=== PATIENT | female | born 1970 | race Caucasian/White ===

== ENCOUNTER → 2023-10-07 15:55 | Outpatient (BNVA) | payer SELFPAY | PROVIDERS: PCP Internal Medicine ==

== ENCOUNTER 2023-11-29 09:13 | Inpatient (IN) | payer OTHER, SELFPAY ==
[2023-11-29] VITALS (8 sets, daily range): BP systolic 101–154; BP diastolic 48–101; PULSE 81–106; RESP 16–20; TEMP 36.7–37.6; O2SAT 82–93; BMI 52.8
--- NOTE | ~2023-11-29 | XR_ITS ---
EXAMINATION: XR CHEST CLINICAL INFORMATION: Shortness of breath. COMPARISON: None available. TECHNIQUE: Frontal view of the chest was obtained. FINDINGS: Perihilar bronchial wall thickening. No consolidation, pneumothorax, or pleural effusion. Linear opacities at the right lung base likely correspond to atelectasis. No pleural effusion. Cardiac and mediastinal contours are normal. No acute osseous findings. XR/XR chest 1V IMPRESSION: Bronchial wall thickening can be seen with a small airways process such as asthma or atypical/viral infection.
--- NOTE | 2023-11-29 10:20 | ED_ITS ---
HPI - General Adult General Chief complaint: General Medical Stated complaint: chills body aches fever Time Seen by Provider: 11/29/23 10:04 Source: patient Mode of arrival: ambulatory Limitations: no limitations History of Present Illness ED Provider: Chace Cowart PA-C HPI narrative: This is a 53 year old female hx htn, dm, obesity with a chief complaint of chills, body aches, headache, N/D, some diarrhea, sore throat, shortness of breath and fever starting . SOB worse w/ movment better at rest. No sick contacts reported. No recent travel. Symptoms have not improved. Denies chest pain,vomiting, hematochezia, vision changes, weakness. Onset (ago): day(s) Related Data Allergies Allergy/AdvReac Type Severity Reaction Status Date / Time No Known Allergies Allergy Verified 11/29/23 09:47 Review of Systems 2 Review of Systems: Yes all other systems are reviewed and are negative Constitutional: Constitutional: Reports body ache(s), Reports chills, Reports fever(s) and Reports headache(s) ENT: Reports headache(s) Gastrointestinal: Gastrointestinal: Reports diarrhea, Reports nausea and Reports vomiting Neurologic: Reports headache(s) [facility] Past Medical History Attestation statement: The following information was validated with the patient. Source: old records reviewed and nursing notes reviewed Social History Social History Advance Directives: No Advance Directives Information Provided: Yes Physical Exam ED Vital Signs: Vital Signs - 24 hr 11/29/23 09:44 11/29/23 11:10 11/29/23 11:22 Temperature 99.6 F 98.7 F Pulse Rate 106 H 93 Respiratory Rate 20 20 Blood Pressure 154/101 H 126/84 Pulse Oximetry 93 92 82 L Oxygen Delivery Method Room Air Room Air Room Air BMI result Body Mass Index 52.8 VSS. Appearance: Alert.? Oriented X3.? No acute distress.? Head: Normocephalic, atraumatic, no step-offs or deformities Eyes: Pupils equal, round and reactive to light.? ENT: Pharynx normal.??Uvula midline. Speaking in full sentences. Mild erythema. No exudates or abcess. External ears normal, TMs normal bilaterally and EAC's normal. No pain with manipulation of external ears bilaterally. No mastoid tenderness. Neck: Normal inspection.? Neck supple.? CVS: Normal heart rate and rhythm.? Pulses normal.? Respiratory: No respiratory distress.? Breath sounds normal.? Abdomen: Soft and nontender.? Skin: Skin warm and dry.? Normal skin color.? Normal skin turgor.? Extremities: No lower extremity edema.? No calf ttp. 5/5 strength to bilateral upper and lower extremities Back: No midline tenderness, no C-spine tenderness, full range of motion, no CVA tenderness bilaterally Neuro: Oriented X 3.? No motor deficit.? No sensory deficit. CN 2-12 intact Course Reevaluation(s) Reevaluation #1: Patients ambulatory O2, 82% w/ labored breathing w/ ambulation. Flu/covid/ rsv and strep negative. At this time will obtain labs, ua, blood cultures and lactic acid. Fluids hanging Time: 11:27 Reevaluation #2: X-ray with bronchial wall thickening can be seen with small airway process such as asthma or atypical/viral infection I do suspect an atypical infection as patient has had a fever symptoms have been ongoing for greater than 7 days and she is desatting down to 82% on room air. Plan hospital admission Time: 12:51 Medications Administered Discontinued Medications Generic Name Dose Route Start Last Admin Trade Name Freq PRN Reason Stop Dose Admin Sodium Chloride 1,000 mls @ 999 mls/hr 11/29/23 11:00 11/29/23 12:44 Ns IV 11/29/23 12:00 Infused .Q1H1M [facility] Infusion Sodium Chloride 3,804 mls @ 3,804 mls/hr 11/29/23 11:16 11/29/23 12:41 Ns 30 ml/kg infuse over 1 hr (3804 ml) 11/29/23 12:15 3,804 mls/hr IV Administration .Q1H STA Ceftriaxone Sodium 1 gm/ 50 mls @ 100 mls/hr 11/29/23 11:16 11/29/23 12:44 Sodium Chloride IV 11/29/23 11:45 Infused ONCE ONE Infusion Ketorolac Tromethamine 30 mg 11/29/23 11:14 11/29/23 11:35 Ketorolac Tromethamine 15 Mg/Ml Vial IVPUSH 11/29/23 11:15 30 mg ONCE ONE Administration Ondansetron HCl 4 mg 11/29/23 11:14 11/29/23 11:36 Ondansetron Hcl 4 Mg/2 Ml Vial IVPUSH 11/29/23 11:15 4 mg ONCE ONE Administration Medical Decision Making Medical Decision Making [facility] Narrative: 53 year old female with fever, sore throat, chills, body aches, N/V/D since last . PE: Pharynx normal.??Uvula midline. Speaking in full sentences. Mild erythema. No exudates or abscess. Differential includes flu vs COVID vs strep throat vs viral pharyngitis. Unlikely meningitis, encephalitis, retro tonsillar abscess. Plan: IV fluids 0.9% Sodium Chloride NS 999mls/hr. SARS-CoV2/Flu/RSV test results pending. Differential Diagnosis Differential Diagnoses: The differential diagnosis associated with the presentation includes (Flu vs COVID vs strep throat vs viral pharyngitis. Unlikely sinusitis, meningitis, encephalitis, retro tonsillar abscess. ) Admission/Observation Consideration of admission/observation: Escalation of care including admission/observation considered possible Lab Data [facility] Lab Attestation statement: I reviewed the patient's lab results. 11/29/23 11:55 11/29/23 11:55 Labs: Lab Results 11/29/23 11/29/23 11/29/23 Range/Units 10:15 11:53 11:55 WBC 5.7 (4.8-10.8) X10*3/uL RBC 4.42 (4.20-5.50) X10*6/uL Hgb 14.6 (12.0-16.0) g/dl Hct 42.4 (37.0-47.0) % MCV 95.9 (80.0-98.0) fL MCH 33.0 (27.0-33.0) pg MCHC 34.4 (31.0-35.0) g/dl RDW 12.6 (11.0-16.0) % Plt Count 218 (160-400) X10*3/uL MPV 9.8 (9.4-12.3) fL Immature Gran % (Auto) 0.2 (0.0-0.4) % Neut % (Auto) 78.0 H (45-73) % Lymph % (Auto) 12.0 L (20-40) % [place] % (Auto) 9.0 (2-11) % Eos % (Auto) 0.4 (0-4) % Baso % (Auto) 0.4 (0-2) % Lymph # (Auto) 0.7 L (1.2-4.9) X10*3/uL [place] # (Auto) 0.5 (0.1-1.2) X10*3/uL Eos # (Auto) 0.0 (0.0-0.4) X10*3/uL Baso # (Auto) 0.0 (0.0-0.2) X10*3/uL Abs Immat Gran (auto) 0.01 (0.00-0.03) X10*3/uL Absolute Neuts (auto) 4.5 (2.0-8.3) x10*3/uL Absolute Nucleated RBC 0.000 (0.0-0.012) X10*3/uL Nucleated RBC % (auto) 0.0 (0.0-0.2) /100WBC PT 11.9 (11.1-13.3) SEC INR 1.0 (0.9-1.1) Sodium 137 (135-145) mmol/L Potassium 3.7 (3.3-5.1) mmol/L Chloride 102 (96-108) mmol/L Carbon Dioxide 24 (22-29) mmol/L Anion Gap 15 (12-20) BUN 11 (9-16) mg/dL Creatinine 0.87 (0.5-1.4) mg/dL Estim Creat Clear Calc 91.5 Estimated GFR > 60 Random Glucose 156 H (60-115) mg/dL Lactic Acid 1.0 (0.5-2.0) mmol/L Calcium 8.6 (8.4-10.2) mg/dL Total Bilirubin 0.5 (0.0-1.0) mg/dL AST 18 (5-31) U/L ALT 16 (0-31) U/L Alkaline Phosphatase 58 (39-117) U/L Total Protein 7.2 (6.5-8.0) g/dL Albumin 3.9 (3.5-5.0) g/dL Lipase 18 (8-78) U/L Urine Color Yellow Urine Appearance Clear Urine pH 6.0 (5.0-9.0) Ur Specific [place] 1.020 (1.005-1.025) Urine Protein Negative (Neg-Trace) mg/dL Urine Glucose (UA) Negative (Negative) mg/dL Urine Ketones 40 (Negative) mg/dL Urine Blood Negative (Negative) Urine Nitrite Negative (Negative) Ur Leukocyte Esterase Negative (Negative) Influenza Type A (PCR) NEGATIVE (Negative) Influenza Type B (PCR) NEGATIVE (Negative) RSV RNA Qual (PCR) NEGATIVE (Negative) SARS-CoV-2 RNA (RT-PCR) NEGATIVE (Negative) S. pyogenes GrpA FANNY Negative (Negative) Independent Interpretation I performed an independent interpretation of an: Plain X-Ray (XR/XR chest 1V IMPRESSION: Bronchial wall thickening can be seen with a small airways process such as asthma or atypical/viral infection. ) Radiology Impression Discussion of test interpretation with radiology: I have reviewed the radiologist's reading. Chronic Conditions Patient?s care impacted by: Diabetes, Hypertension and Other Critical Care Time Critical Care Time Critical Care Time: Yes Total Critical Care Time: 45 Attestation: I attest to this time spent taking care of the patient, obtaining history, physical, reviewing labs, imaging, speaking to my attending, specialist or hospitalist. Discharge Plan Discharge Clinical Impression: Acute bronchitis, Hypoxia Patient Disposition: Admitted As Inpatient Print Language: [place]
[2023-11-29 10:57] LABS: IDNOW Serial# 08D9AD1C; Strep A Nucleic Acid Negative (Negative)
[2023-11-29 11:11] LABS: Influenza A PCR NEGATIVE (Negative); Influenza B PCR NEGATIVE (Negative); Resp Syncy Virus RNA Qual PCR NEGATIVE (Negative); SARS COV2 PCR INHOUSE NEGATIVE (Negative)
[2023-11-29] MEDS: Ketorolac Tromethamine 15 MG/ML VIAL 30 MG IVPUSH (11:35)
[2023-11-29] MEDS: cefTRIAXone sodium 1 GM in 0.9 % Sodium Chloride 50 ML IV (11:36)
[2023-11-29] MEDS: ondansetron HCL 4 MG/2 ML VIAL IVPUSH (11:36)
[2023-11-29] MEDS: 0.9 % Sodium Chloride 1,000 ML 999 ML IV (11:36)
[2023-11-29 12:02] LABS: MANUAL DIFF FLAG NO
[2023-11-29 12:04] LABS: Basophils Percent Auto 0.4 % (0-2); Eosinophils Percent Auto 0.4 % (0-4); Hematocrit 42.4 % (37.0-47.0); Hemoglobin 14.6 g/dl (12.0-16.0); Imm Gran Abs Auto 0.01 X10*3/uL (0.00-0.03); Imm Gran Pct Auto 0.2 % (0.0-0.4); Lymphocytes Absolute Auto 0.7 X10*3/uL (1.2-4.9); Mean Corpuscular HGB Conc 34.4 g/dl (31.0-35.0); Mean Corpuscular Volume 95.9 fL (80.0-98.0); Mean Platelet Volume 9.8 fL (9.4-12.3); Monocytes Absolute Auto 0.5 X10*3/uL (0.1-1.2); Neutrophils Absolute Auto 4.5 x10*3/uL (2.0-8.3); Platelet Count 218 X10*3/uL (160-400); Red Blood Count 4.42 X10*6/uL (4.20-5.50); Red Cell Distribution Width 12.6 % (11.0-16.0); White Blood Count 5.7 X10*3/uL (4.8-10.8)
[2023-11-29 12:08] LABS: Prothrombin Time 11.9 SEC (11.1-13.3)
[2023-11-29 12:10] LABS: Appearance Urine Clear; Color Urine Yellow; Glucose Urine UA Negative (Negative); Leukocyte Esterase Urine Negative (Negative); Nitrite Urine Negative (Negative); Urine Blood Negative (Negative); Urine Ketones 40 mg/dL (Negative); Urine Protein Negative (Neg-Trace)
[2023-11-29 12:19] LABS: Lipase 18 U/L (8-78)
[2023-11-29 12:22] LABS: Alanine Aminotransferase 16 U/L (0-31); Albumin Level 3.9 g/dL (3.5-5.0); Alkaline Phosphatase 58 U/L (39-117); Anion Gap 15 (12-20); Aspartate Amino Transferase 18 U/L (5-31); Bilirubin Total 0.5 mg/dL (0.0-1.0); Blood Urea Nitrogen 11 mg/dL (9-16); Calcium 8.6 mg/dL (8.4-10.2); Carbon Dioxide 24 mmol/L (22-29); Chloride 102 mmol/L (96-108); Creatinine Clr Calc Pharmacy 91.5; Estimated Glomerular Filt Rate > 60; Glucose Random 156 mg/dL (60-115); Potassium 3.7 mmol/L (3.3-5.1); Sodium 137 mmol/L (135-145); Total Protein 7.2 g/dL (6.5-8.0)
--- NOTE | 2023-11-29 12:46 | ECG_ITS ---
Test Reason : SOB Blood Pressure : / mmHG Vent. Rate : 086 BPM Atrial Rate : 086 BPM P-R Int : 136 ms QRS Dur : 066 ms QT Int : 390 ms P-R-T Axes : 046 014 039 degrees QTc Int : 466 ms Normal sinus rhythm Normal ECG No previous ECGs available Referred By: Chace Cowart Electronically Signed By:José Manuel Rico
[2023-11-29] MEDS: Albuterol Sulfate 2.5 MG/0.5 ML VIAL.NEB 5 MG INHALE (12:56)
[2023-11-29 13:12] LABS: D Dimer High Sensitivity 281 NG/ML
[2023-11-29] MEDS: Azithromycin 500 MG in 0.9 % Sodium Chloride 250 ML 125 MG IV (13:15)
[2023-11-29 13:26] LABS: Troponin-I High Sensitivity < 2.7 ng/L (<3.5-17.0)
[2023-11-29 14:04] LABS: Adenovirus PCR Not Detected (Not Detect.); Bordetella parapertussis PCR Not Detected (Not Detect.); Bordetella pertussis PCR Not Detected (Not Detect.); Chlamydia pneumoniae PCR Not Detected (Not Detect.); Coronavirus 229E PCR Not Detected (Not Detect.); Coronavirus HKU1 PCR Not Detected (Not Detect.); Coronavirus NL63 PCR Not Detected (Not Detect.); Coronavirus OC43 PCR Not Detected (Not Detect.); Human metapneumovirus PCR Detected (Not Detect.); Influenza A PCR Not Detected (Not Detect.); Influenza B PCR Not Detected (Not Detect.); Mycoplasma pneumoniae PCR Not Detected (Not Detect.); Parainfluenza 1 PCR Not Detected (Not Detect.); Parainfluenza 2 PCR Not Detected (Not Detect.); Parainfluenza 3 PCR Not Detected (Not Detect.); Parainfluenza 4 PCR Not Detected (Not Detect.); RSV PCR Not Detected (Not Detect.); Rhino/Enterovirus PCR Not Detected (Not Detect.)
[2023-11-29 14:05] LABS: SARS-CoV-2 PCR Not Detected (Not Detect.)
--- NOTE | 2023-11-29 14:21 | PHA.MEDREC ---
Pharmacy Consult ? Medication Reconciliation Pharmacy has completed the medication reconciliation.
--- NOTE | 2023-11-29 15:01 | P.HPHOSP_ITS ---
History of Present Illness Date of Service: 11/29/23 Attending physician on admission: Abdirahman Watt Chief Complaint: uri symptoms 53-year-old female with history of lre-[id number] type 2 diabetes, hypertension, hyperlipidemia, mood disorder who is morbidly obese with BMI greater than 52 presented to the ED earlier today for evaluation of flu-like symptoms that has been ongoing for 5 days. She denies any known sick contacts but has been reporting myalgias, headaches, nausea without vomiting, chills, nonproductive cough, and intermittent light-headedness primarily with ambulation. Denies any fevers, sore throat, congestion, abdominal pain, diarrhea, shortness of breath, chest pain. She is known history of asthma or COPD. She has no smoking history. No illicit drug use or alcohol use. On arrival, was tachycardic to 106 with ambulatory hypoxemia to 82% on room air. On room air has been maintaining oximetry 91-93%. There is no leukocytosis. Renal function and electrolyte levels are normal. Hepatic function normal. Troponin undetectable. Urinalysis unremarkable. Respiratory viral panel was positive for human metapneumovirus. CXR negative for any focal consolidation but shows bronchial wall thickening suggestive of small airways disease. In the ED, has received IV NS, ketorolac, 1 g Rocephin, azithromycin, albuterol nebulizer. She will be admitted for further management of viral syndrome/bronchitis with ambulatory hypoxemia. Review of Systems 2 Review of Systems: General: No fevers, malaise, unintentional weight loss HEENT: No blurred vision, diplopia. No sore throat, nasal congestion, rhinorrhea, sinus pain, ear pain Cardiovascular: No chest pain, palpitations, or leg edema Respiratory: +cough, +wheezing. No shortness of breath GI: +nausea. No abdominal pain, vomiting, diarrhea, constipation, melena, hematochezia : No dysuria, hematuria, increased urinary frequency, decreased urinary output MSK: +myalgia. No back pain Neuro: No headaches, weakness, paresthesias Skin: No rashes or lesions [facility] Medical History (Updated 11/30/23 @ 09:42 by Abdirahman Watt MD) Diabetes HLD (hyperlipidemia) HTN (hypertension) Social History (Reviewed 11/29/23 @ 12:45 by SALLY Matias Alcohol intake: never Smoked in Last 30 Days: No Use of substances other than those prescribed or required for medical reasons: No Advance Directives: No Advance Directives Information Provided: Yes Do you have a plan to hurt others: No Plan Meds Allergies Allergy/AdvReac Type Severity Reaction Status Date / Time No Known Allergies Allergy Verified 11/29/23 09:47 Active Medications: Current Medications Acetaminophen (Acetaminophen 325 Mg Tablet) 650 mg PO Q6H PRN PRN Reason: Pain, Mild (Pain Scale 1-3) Albuterol/Ipratropium (Albuterol/Iprat 2.5/0.5mg 3 Ml Ampul.Neb) 3 ml INHALE RQ4H WHILE AWAKE [facility] Enoxaparin Sodium (Enoxaparin Sodium 40 Mg/0.4 Ml Syringe) 40 mg SUBCUT Q24H [facility] Escitalopram Oxalate (Escitalopram Oxalate 10 Mg Tablet) 10 mg PO DAILY [facility] Glucose (Glucose Gel 15 Gm Gel..Gram.) 15 gm PO Q15M PRN; Protocol PRN Reason: per Hypoglycemia Standing Ord. Dextrose (D10) 250 mls @ 750 mls/hr IV Q15M PRN; Protocol PRN Reason: per Hypoglycemia Standing Ord. Insulin Human Lispro (Insulin Lispro 100 Unit/Ml 3 Ml Vial) 0 unit SUBCUT QIDACHS [facility]; Protocol Magnesium Hydroxide (Milk Of Magnesia 30 Ml Oral.Susp) 30 ml PO DAILY PRN PRN Reason: Constipation Methylprednisolone Sodium Succinate (Methylprednisolone Sod Succ 40 Mg/Ml Vial) 40 mg IVPUSH Q12H [facility] Non-Formulary Medication (Lisinopril-Hydrochlorothiazide) 1 tab PO DAILY [facility] Ondansetron HCl (Ondansetron Hcl 4 Mg/2 Ml Vial) 4 mg IVPUSH Q8H PRN PRN Reason: Nausea and Vomiting Pravastatin Sodium (Pravastatin Sodium 20 Mg Tablet) 20 mg PO DAILY [facility] Sodium Chloride (0.9 % Sodium Chloride Flush 3 Ml Syringe) 3 ml IVFLUSH QSHIFT [facility] Home Medications ?Medication ?Instructions ?Recorded ?Confirmed ?Last Taken ?Type escitalopram oxalate 10 mg tablet 10 mg PO DAILY 11/29/23 11/29/23 Unknown History ibuprofen 200 mg tablet 200 - 400 mg PO DAILY PRN 11/29/23 11/29/23 Unknown History headaches/pain lisinopril 10 1 tab PO DAILY 11/29/23 11/29/23 Unknown History mg-hydrochlorothiazide 12.5 mg tablet pravastatin 20 mg tablet 20 mg PO DAILY 11/29/23 11/29/23 Unknown History Physical Exam 2 Vital Signs and Narrative: Vital Signs: Last Vital Signs Temp 98.0 F 11/29/23 14:30 Pulse 83 11/29/23 14:30 Resp 16 11/29/23 14:30 BP 115/72 11/29/23 14:30 Pulse Ox 91 L 11/29/23 14:30 O2 Del Method Room Air 11/29/23 14:30 BMI result Body Mass Index 52.8 Constitutional - Awake and Alert, No apparent distress Eyes - PERRLA, EOMI Cardiovascular - S1S2, RRR, No edema Respiratory - Normal lung expansion, Normal respiratory effort, No respiratory distress, diminished lung sounds bilaterally with scattered expiratory hypoxia Gastrointestinal - NT / ND; +BS; No rebound or guarding Extremities - no calf tenderness bilaterally, no swelling Skin - Warm/Dry Neurological - Alert & oriented x3 Psychological - Appropriate affect Results Labs 12/01/23 04:56 12/01/23 04:56 Labs: Laboratory Results - last 24 hr 11/29/23 11/29/23 11/29/23 10:15 11:53 11:55 MCV 95.9 MCH 33.0 MCHC 34.4 RDW 12.6 Plt Count 218 MPV 9.8 Immature Gran % (Auto) 0.2 Neut % (Auto) 78.0 H Lymph % (Auto) 12.0 L [place] % (Auto) 9.0 Eos % (Auto) 0.4 Baso % (Auto) 0.4 Lymph # (Auto) 0.7 L [place] # (Auto) 0.5 Eos # (Auto) 0.0 Baso # (Auto) 0.0 Abs Immat Gran (auto) 0.01 Absolute Neuts (auto) 4.5 Absolute Nucleated RBC 0.000 Nucleated RBC % (auto) 0.0 PT 11.9 INR 1.0 D-Dimer High Sensitivty 281 Anion Gap 15 Estim Creat Clear Calc 91.5 Estimated GFR > 60 Random Glucose 156 H Lactic Acid 1.0 Calcium 8.6 Total Bilirubin 0.5 AST 18 ALT 16 Alkaline Phosphatase 58 Troponin I High Sens < 2.7 Total Protein 7.2 Albumin 3.9 Lipase 18 Urine Color Yellow Urine Appearance Clear Urine pH 6.0 Ur Specific [place] 1.020 Urine Protein Negative Urine Glucose (UA) Negative Urine Ketones 40 Urine Blood Negative Urine Nitrite Negative Ur Leukocyte Esterase Negative Respiratory Panel [place] Adenovirus (Rapid PCR) B.pert (TEM-PCR) B.parapertussis DNA PCR C. pneumoniae DNA (PCR) Coronavirus OC43 (PCR) Coronavirus HKU1 (PCR) Coronavirus 229E (PCR) Coronavirus NL63 (PCR) Human Metapneumovir PCR Influenza A (RT-PCR) Influenza Type A (PCR) NEGATIVE Influenza B (RT-PCR) Influenza Type B (PCR) NEGATIVE M. pneumoniae (PCR) Parainfluenza 1 (PCR) Parainfluenza 2 (PCR) Parainfluenza 3 (PCR) Parainfluenza 4 (PCR) RSV (PCR) RSV RNA Qual (PCR) NEGATIVE Entero/Rhino (PCR) SARS-CoV-2 RNA (RT-PCR) NEGATIVE S. pyogenes GrpA FANNY Negative 11/29/23 12:03 MCV MCH MCHC RDW Plt Count MPV Immature Gran % (Auto) Neut % (Auto) Lymph % (Auto) [place] % (Auto) Eos % (Auto) Baso % (Auto) Lymph # (Auto) [place] # (Auto) Eos # (Auto) Baso # (Auto) Abs Immat Gran (auto) Absolute Neuts (auto) Absolute Nucleated RBC Nucleated RBC % (auto) PT INR D-Dimer High Sensitivty Anion Gap Estim Creat Clear Calc Estimated GFR Random Glucose Lactic Acid Calcium Total Bilirubin AST ALT Alkaline Phosphatase Troponin I High Sens Total Protein Albumin Lipase Urine Color Urine Appearance Urine pH Ur Specific [place] Urine Protein Urine Glucose (UA) Urine Ketones Urine Blood Urine Nitrite Ur Leukocyte Esterase Respiratory Panel [place] See Note Adenovirus (Rapid PCR) Not Detected B.pert (TEM-PCR) Not Detected B.parapertussis DNA PCR Not Detected C. pneumoniae DNA (PCR) Not Detected Coronavirus OC43 (PCR) Not Detected Coronavirus HKU1 (PCR) Not Detected Coronavirus 229E (PCR) Not Detected Coronavirus NL63 (PCR) Not Detected Human Metapneumovir PCR Detected A Influenza A (RT-PCR) Not Detected Influenza Type A (PCR) Influenza B (RT-PCR) Not Detected Influenza Type B (PCR) M. pneumoniae (PCR) Not Detected Parainfluenza 1 (PCR) Not Detected Parainfluenza 2 (PCR) Not Detected Parainfluenza 3 (PCR) Not Detected Parainfluenza 4 (PCR) Not Detected RSV (PCR) Not Detected RSV RNA Qual (PCR) Entero/Rhino (PCR) Not Detected SARS-CoV-2 RNA (RT-PCR) Not Detected S. pyogenes GrpA FANNY Imaging Radiologist's Impressions: Impressions Chest X-Ray 11/29/23 11:15 IMPRESSION: Bronchial wall thickening can be seen with a small airways process such as asthma or atypical/viral infection. Assessment and Plan (1) Acute bronchitis: Status: Acute (2) Exercise hypoxemia: Status: Acute Plan 53-year-old female with history of iyq-pjvojmg-vybnqmztz type 2 diabetes, hypertension, hyperlipidemia, mood disorder who is morbidly obese with BMI greater than 52 admitted for acute viral uri with bronchitis and ambulatory hypoxia. #Acute viral URI with bronchitis and ambulatory hypoxemia (82% on RA) complicated by obesity hypoventilation syndrome -RPP positive for human metapneumovirus -CXR suggestive of small airways disease but no focal consolidation -IV methylprednisolone 40 mg b.i.d. -DuoNebs q.4h while awake -albuterol p.r.n. -antibiotics not indicated -incentive spirometry -oxygen administration p.r.n. per protocol #Xsq-[id number]-[id number] type 2 diabetes -POC glucose, diabetic diet -Humalog on sliding scale # hypertension -continue lisinopril/hydrochlorothiazide #HLD -statin #Mood disorder -continue lexapro dvt prophylaxis- lovenox full code due to patient's ambulatory hypoxemia with oximetry 82% on RA with ambulation 2/2 viral uri/bronchitis pt will require inpt hospitalization at least 2 midnights for iv steroids and scheduled nebulizer treaments Quality Stroke Does the patient have a stroke diagnosis?: No VTE Prior VTE?: No VTE Risk Level:: Medical - moderate - high VTE Device Contraindication: Treatment Not Indicated VTE Drug Contraindication: N/A - Med Ordered
[2023-11-29] MEDS: Albuterol/Iprat 2.5/0.5MG 3 ML AMPUL.NEB INHALE (15:17)
[2023-11-29] MEDS: Enoxaparin Sodium 40 MG/0.4 ML SYRINGE SUBCUT (16:00)
--- NOTE | 2023-11-29 16:16 | PC.NURSE ---
Only 2 Liters of the 3804ml Normal saline bolus administered per Chace Streeter.
[2023-11-29 17:25] LABS: Glucose, Whole Blood 122 mg/dL (60-115)
[2023-11-29] MEDS: Acetaminophen 325 MG TABLET 650 MG PO (18:14)
--- NOTE | 2023-11-29 19:20 | MHC.CM.PN ---
CM met with admitted patient with bed assignment pending. A&Ox4. Lives alone. Uses no DME/services. THRIVE screening negative. No HCP on file. HCP reviewed, completed and signed. HCP Paul Mathews (son) [phone]). Copies given. Uploaded into [facility] and [facility] [employer]-Box - [email or web address]. D/C plan: Home without services. Son will transport home. CM will follow for any discharge needs.
[2023-11-29 20:40] LABS: Glucose, Whole Blood 164 mg/dL (60-115)
[2023-11-29] MEDS: Insulin Lispro 100 UNIT/ML 3 ML VIAL SUBCUT (22:04)
[2023-11-29] MEDS: methylPREDNISolone Sod Succ 40 MG/ML VIAL IVPUSH (22:04)
--- NOTE | 2023-11-29 22:07 | PC.NURSE ---
assumed care at 1900 , medicated per SEP, c/o headache and cough, hospitalist notified
[2023-11-29] MEDS: Benzonatate 100 MG CAPSULE 200 MG PO (22:42)
--- NOTE | 2023-11-29 22:42 | PC.NURSE ---
pt medicated per Sep for cough
[2023-11-30] MEDS: 0.9 % Sodium Chloride Flush 3 ML SYRINGE IVFLUSH ×3 (00:18→17:02)
[2023-11-30] MEDS: Acetaminophen 325 MG TABLET 650 MG PO (01:09)
--- NOTE | 2023-11-30 01:12 | PC.NURSE ---
Addendum entered by Jim Saucedo RN 11/30/23 03:39: no new interventions ordered at this time Original Note: pt c/o severe headache, medicated per MAR
--- NOTE | 2023-11-30 02:38 | PC.NURSE ---
oral temp 98.7
[2023-11-30] MEDS: ondansetron HCL 4 MG/2 ML VIAL IVPUSH (04:27)
--- NOTE | 2023-11-30 04:30 | PC.NURSE ---
Addendum entered by Jim Saucedo RN 11/30/23 04:33: hospitalist notified via [place] text Original Note: pt c/o severe nausea, medicated per MAR, pt spo2 85-91% on room air, placed on 2 liters [place]
[2023-11-30 04:54] VITALS: BP 151/91; PULSE 91; RESP 18; TEMP 36.6; O2SAT 92
[2023-11-30 06:02] LABS: MANUAL DIFF FLAG NO
[2023-11-30 06:16] LABS: Hematocrit 42.3 % (37.0-47.0); Imm Gran Abs Auto 0.04 X10*3/uL (0.00-0.03); Lymphocytes Absolute Auto 0.8 X10*3/uL (1.2-4.9); Lymphocytes Percent Auto 18.8 % (20-40); Mean Corpuscular HGB Conc 33.1 g/dl (31.0-35.0); Mean Corpuscular Hemoglobin 32.6 pg (27.0-33.0); Mean Corpuscular Volume 98.4 fL (80.0-98.0); Mean Platelet Volume 9.8 fL (9.4-12.3); Monocytes Absolute Auto 0.2 X10*3/uL (0.1-1.2); Monocytes Percent Auto 3.6 % (2-11); Neutrophils Absolute Auto 3.2 x10*3/uL (2.0-8.3); Neutrophils Percent Auto 76.6 % (45-73); Platelet Count 210 X10*3/uL (160-400); Red Cell Distribution Width 12.9 % (11.0-16.0); White Blood Count 4.2 X10*3/uL (4.8-10.8)
[2023-11-30 06:25] LABS: Anion Gap 15 (12-20); Blood Urea Nitrogen 14 mg/dL (9-16); Calcium 8.5 mg/dL (8.4-10.2); Carbon Dioxide 22 mmol/L (22-29); Chloride 107 mmol/L (96-108); Creatinine Clr Calc Pharmacy 84.7; Estimated Glomerular Filt Rate > 60; Glucose Random 221 mg/dL (60-115); Potassium 4.5 mmol/L (3.3-5.1); Sodium 139 mmol/L (135-145)
[2023-11-30 07:14] LABS: Glucose, Whole Blood 220 mg/dL (60-115)
[2023-11-30] MEDS: Insulin Lispro 100 UNIT/ML 3 ML VIAL SUBCUT ×4 (08:50→21:54)
[2023-11-30] MEDS: methylPREDNISolone Sod Succ 40 MG/ML VIAL IVPUSH ×2 (08:51→21:54)
[2023-11-30] MEDS: lisinopriL 10 MG TABLET PO (08:52)
[2023-11-30] MEDS: hydroCHLOROthiazide 12.5 MG TABLET PO (08:52)
[2023-11-30 08:59] VITALS: BP 115/70; PULSE 81; RESP 16; TEMP 36.6; O2SAT 88
[2023-11-30 09:18] VITALS: O2SAT 95
--- NOTE | 2023-11-30 09:34 | HO.PM.IMPN ---
Subjective Subjective Date of Service: 11/30/23 Interval History: Seen and evaluated this morning Feels little better reporting feeling sweaty, myalgia less wheezy still hypoxic on RA Review of Systems Review of Systems: Yes all other systems are reviewed and are negative Physical Exam Vital Signs: Vital Signs: Last Vital Signs Temp 97.9 F 11/30/23 08:59 Pulse 81 11/30/23 08:59 Resp 16 11/30/23 08:59 BP 115/70 11/30/23 08:59 Pulse Ox 95 11/30/23 09:18 O2 Del Method Nasal Cannula 11/30/23 09:18 O2 Flow Rate 2 11/30/23 09:18 BMI result Body Mass Index 52.8 Const: Other: Constitutional : Awake, interactive, not in distress Neck : Normal inspection, Supple Cardiovascular : RRR, no JVP, no lower extremity edema Respiratory : fair bilateral air entry, no crackles, scattered wheezes Gastrointestinal: soft, lax, Normal bowel sounds, Non tender Skin : Warm, Dry Neurological : Alert & oriented x3, No focal deficit Objective Data Active Medications Acetaminophen (Acetaminophen 325 Mg Tablet) 650 mg PO Q6H PRN PRN Reason: Pain, Mild (Pain Scale 1-3) Last Admin: 11/30/23 01:09 Dose: 650 mg Documented By: ANGIE Albuterol/Ipratropium (Albuterol/Iprat 2.5/0.5mg 3 Ml Ampul.Neb) 3 ml INHALE RQ4H WHILE AWAKE [facility] Last Admin: 11/30/23 07:43 Dose: Not Given Documented By: MAKENZIE Non-Admin Reason: Patient Asleep Benzonatate (Benzonatate 100 Mg Capsule) 200 mg PO TID PRN PRN Reason: Cough Last Admin: 11/29/23 22:42 Dose: 200 mg Documented By: ANGIE Enoxaparin Sodium (Enoxaparin Sodium 40 Mg/0.4 Ml Syringe) 40 mg SUBCUT Q24H [facility] Last Admin: 11/29/23 16:00 Dose: 40 mg Documented By: FAROOQ Escitalopram Oxalate (Escitalopram Oxalate 10 Mg Tablet) 10 mg PO DAILY [facility] Glucose (Glucose Gel 15 Gm Gel..Gram.) 15 gm PO Q15M PRN; Protocol PRN Reason: per Hypoglycemia Standing Ord. Hydrochlorothiazide (Hydrochlorothiazide 12.5 Mg Tablet) 12.5 mg PO DAILY [facility] Last Admin: 11/30/23 08:52 Dose: 12.5 mg Documented By: AREN Dextrose (D10) 250 mls @ 750 mls/hr IV Q15M PRN; Protocol PRN Reason: per Hypoglycemia Standing Ord. Insulin Human Lispro (Insulin Lispro 100 Unit/Ml 3 Ml Vial) 0 unit SUBCUT QIDACHS [facility]; Protocol Last Admin: 11/30/23 08:50 Dose: 4 unit Documented By: AREN Lisinopril (Lisinopril 10 Mg Tablet) 10 mg PO DAILY [facility] Last Admin: 11/30/23 08:52 Dose: 10 mg Documented By: AREN Magnesium Hydroxide (Milk Of Magnesia 30 Ml Oral.Susp) 30 ml PO DAILY PRN PRN Reason: Constipation Methylprednisolone Sodium Succinate (Methylprednisolone Sod Succ 40 Mg/Ml Vial) 40 mg IVPUSH Q12H [facility] Last Admin: 11/30/23 08:51 Dose: 40 mg Documented By: AREN Ondansetron HCl (Ondansetron Hcl 4 Mg/2 Ml Vial) 4 mg IVPUSH Q8H PRN PRN Reason: Nausea and Vomiting Last Admin: 11/30/23 04:27 Dose: 4 mg Documented By: ANGIE Pravastatin Sodium (Pravastatin Sodium 20 Mg Tablet) 20 mg PO DAILY [facility] Sodium Chloride (0.9 % Sodium Chloride Flush 3 Ml Syringe) 3 ml IVFLUSH QSHIFT [facility] Last Admin: 11/30/23 08:51 Dose: 3 ml Documented By: AREN Labs 11/30/23 05:55 11/30/23 05:55 Labs: Laboratory Results - last 24 hr 11/29/23 11/29/23 11/29/23 10:15 11:53 11:55 MCV 95.9 MCH 33.0 MCHC 34.4 RDW 12.6 Plt Count 218 MPV 9.8 Immature Gran % (Auto) 0.2 Neut % (Auto) 78.0 H Lymph % (Auto) 12.0 L Swift % (Auto) 9.0 Eos % (Auto) 0.4 Baso % (Auto) 0.4 Lymph # (Auto) 0.7 L Swift # (Auto) 0.5 Eos # (Auto) 0.0 Baso # (Auto) 0.0 Abs Immat Gran (auto) 0.01 Absolute Neuts (auto) 4.5 Absolute Nucleated RBC 0.000 Nucleated RBC % (auto) 0.0 PT 11.9 INR 1.0 D-Dimer High Sensitivty 281 Anion Gap 15 Estim Creat Clear Calc 91.5 Estimated GFR > 60 POC Glucose Random Glucose 156 H Lactic Acid 1.0 Calcium 8.6 Total Bilirubin 0.5 AST 18 ALT 16 Alkaline Phosphatase 58 Troponin I High Sens < 2.7 Total Protein 7.2 Albumin 3.9 Lipase 18 Urine Color Yellow Urine Appearance Clear Urine pH 6.0 Ur Specific Simpson 1.020 Urine Protein Negative Urine Glucose (UA) Negative Urine Ketones 40 Urine Blood Negative Urine Nitrite Negative Ur Leukocyte Esterase Negative Respiratory Panel [facility] Adenovirus (Rapid PCR) B.pert (TEM-PCR) B.parapertussis DNA PCR C. pneumoniae DNA (PCR) Coronavirus OC43 (PCR) Coronavirus HKU1 (PCR) Coronavirus 229E (PCR) Coronavirus NL63 (PCR) Human Metapneumovir PCR Influenza A (RT-PCR) Influenza Type A (PCR) NEGATIVE Influenza B (RT-PCR) Influenza Type B (PCR) NEGATIVE M. pneumoniae (PCR) Parainfluenza 1 (PCR) Parainfluenza 2 (PCR) Parainfluenza 3 (PCR) Parainfluenza 4 (PCR) RSV (PCR) RSV RNA Qual (PCR) NEGATIVE Entero/Rhino (PCR) SARS-CoV-2 RNA (RT-PCR) NEGATIVE S. pyogenes GrpA FANNY Negative 11/29/23 11/29/23 11/29/23 12:03 16:36 20:37 MCV MCH MCHC RDW Plt Count MPV Immature Gran % (Auto) Neut % (Auto) Lymph % (Auto) Swift % (Auto) Eos % (Auto) Baso % (Auto) Lymph # (Auto) Swift # (Auto) Eos # (Auto) Baso # (Auto) Abs Immat Gran (auto) Absolute Neuts (auto) Absolute Nucleated RBC Nucleated RBC % (auto) PT INR D-Dimer High Sensitivty Anion Gap Estim Creat Clear Calc Estimated GFR POC Glucose 122 H 164 H Random Glucose Lactic Acid Calcium Total Bilirubin AST ALT Alkaline Phosphatase Troponin I High Sens Total Protein Albumin Lipase Urine Color Urine Appearance Urine pH Ur Specific Simpson Urine Protein Urine Glucose (UA) Urine Ketones Urine Blood Urine Nitrite Ur Leukocyte Esterase Respiratory Panel [place] See Note Adenovirus (Rapid PCR) Not Detected B.pert (TEM-PCR) Not Detected B.parapertussis DNA PCR Not Detected C. pneumoniae DNA (PCR) Not Detected Coronavirus OC43 (PCR) Not Detected Coronavirus HKU1 (PCR) Not Detected Coronavirus 229E (PCR) Not Detected Coronavirus NL63 (PCR) Not Detected Human Metapneumovir PCR Detected A Influenza A (RT-PCR) Not Detected Influenza Type A (PCR) Influenza B (RT-PCR) Not Detected Influenza Type B (PCR) M. pneumoniae (PCR) Not Detected Parainfluenza 1 (PCR) Not Detected Parainfluenza 2 (PCR) Not Detected Parainfluenza 3 (PCR) Not Detected Parainfluenza 4 (PCR) Not Detected RSV (PCR) Not Detected RSV RNA Qual (PCR) Entero/Rhino (PCR) Not Detected SARS-CoV-2 RNA (RT-PCR) Not Detected S. pyogenes GrpA FANNY 11/30/23 11/30/23 05:55 07:09 MCV 98.4 H MCH 32.6 MCHC 33.1 RDW 12.9 Plt Count 210 MPV 9.8 Immature Gran % (Auto) 1.0 H Neut % (Auto) 76.6 H Lymph % (Auto) 18.8 L Swift % (Auto) 3.6 Eos % (Auto) 0.0 Baso % (Auto) 0.0 Lymph # (Auto) 0.8 L Swift # (Auto) 0.2 Eos # (Auto) 0.0 Baso # (Auto) 0.0 Abs Immat Gran (auto) 0.04 H Absolute Neuts (auto) 3.2 Absolute Nucleated RBC 0.000 Nucleated RBC % (auto) 0.0 PT INR D-Dimer High Sensitivty Anion Gap 15 Estim Creat Clear Calc 84.7 Estimated GFR > 60 POC Glucose 220 H Random Glucose 221 H Lactic Acid Calcium 8.5 Total Bilirubin AST ALT Alkaline Phosphatase Troponin I High Sens Total Protein Albumin Lipase Urine Color Urine Appearance Urine pH Ur Specific Simpson Urine Protein Urine Glucose (UA) Urine Ketones Urine Blood Urine Nitrite Ur Leukocyte Esterase Respiratory Panel [place] Adenovirus (Rapid PCR) B.pert (TEM-PCR) B.parapertussis DNA PCR C. pneumoniae DNA (PCR) Coronavirus OC43 (PCR) Coronavirus HKU1 (PCR) Coronavirus 229E (PCR) Coronavirus NL63 (PCR) Human Metapneumovir PCR Influenza A (RT-PCR) Influenza Type A (PCR) Influenza B (RT-PCR) Influenza Type B (PCR) M. pneumoniae (PCR) Parainfluenza 1 (PCR) Parainfluenza 2 (PCR) Parainfluenza 3 (PCR) Parainfluenza 4 (PCR) RSV (PCR) RSV RNA Qual (PCR) Entero/Rhino (PCR) SARS-CoV-2 RNA (RT-PCR) S. pyogenes GrpA FANNY Assessment and Plan (1) Acute bronchitis: Status: Acute (2) Hypoxia: Status: Inactive (3) Infection due to human metapneumovirus (hMPV): Status: Acute Plan 53-year-old female with history of fvm-qfjkslo-xnzoyptlt type 2 diabetes, hypertension, hyperlipidemia, mood disorder who is morbidly obese with BMI greater than 52 admitted for acute viral uri with bronchitis and ambulatory hypoxia. # Hypoxia 2/2 reactive airway disease from acute viral infection Has human metapneumovirus CXR suggestive of small airways disease but no focal consolidation IV methylprednisolone 40 mg b.i.d. DuoNebs q.4h while awake albuterol p.r.n. incentive spirometry Wean O2 down as tolerated will need outpatient sleep study #Sol-mfnsxvo-cyzncensn type 2 diabetes check A1c POC glucose, diabetic diet Humalog on sliding scale # hypertension continue lisinopril/hydrochlorothiazide #HLD statin #Mood disorder continue lexapro dvt prophylaxis- lovenox full code due to patient's hypoxemia and respiratory distress will require inpt hospitalization overnight for iv steroids and scheduled nebulizer treaments Quality Stroke Does the patient have a stroke diagnosis?: No VTE Prior VTE?: No VTE Risk Level:: Medical - moderate - high VTE Device Contraindication: Treatment Not Indicated VTE Drug Contraindication: N/A - Med Ordered
[2023-11-30] MEDS: Pravastatin Sodium 20 MG TABLET PO (09:45)
[2023-11-30] MEDS: Escitalopram Oxalate 10 MG TABLET PO (09:45)
[2023-11-30 10:29] LABS: Estimated Average Glucose 148 mg/dL; Hemoglobin A1c % 6.8 % (<6.0)
[2023-11-30] MEDS: Butalb/Acetamin/Caff 50/325/40 TABLET 2 TAB PO (10:46)
[2023-11-30 11:09] LABS: Glucose, Whole Blood 163 mg/dL (60-115)
[2023-11-30 14:19] VITALS: BP 142/90; PULSE 86; RESP 18; TEMP 37; O2SAT 94
[2023-11-30] MEDS: Enoxaparin Sodium 40 MG/0.4 ML SYRINGE SUBCUT (15:53)
[2023-11-30 17:23] LABS: Glucose, Whole Blood 194 mg/dL (60-115)
[2023-11-30] MEDS: Albuterol/Iprat 2.5/0.5MG 3 ML AMPUL.NEB INHALE (18:02)
[2023-11-30 18:06] VITALS: PULSE 73; RESP 18; O2SAT 93
[2023-11-30 20:48] LABS: Glucose, Whole Blood 162 mg/dL (60-115)
[2023-11-30 21:38] VITALS: BP 109/56; PULSE 62; RESP 18; TEMP 36.7; O2SAT 93
[2023-11-30] MEDS: Ibuprofen 400 MG TABLET PO (21:54)
[2023-12-01 01:41] VITALS: BP 123/66; PULSE 74; O2SAT 73
[2023-12-01 05:16] LABS: Hematocrit 43.2 % (37.0-47.0); Hemoglobin 14.4 g/dl (12.0-16.0); Mean Corpuscular HGB Conc 33.3 g/dl (31.0-35.0); Mean Corpuscular Hemoglobin 32.6 pg (27.0-33.0); Mean Corpuscular Volume 97.7 fL (80.0-98.0); Mean Platelet Volume 10.3 fL (9.4-12.3); Platelet Count 227 X10*3/uL (160-400); Red Blood Count 4.42 X10*6/uL (4.20-5.50); Red Cell Distribution Width 12.7 % (11.0-16.0); White Blood Count 6.4 X10*3/uL (4.8-10.8)
[2023-12-01 05:34] LABS: Anion Gap 15 (12-20); Blood Urea Nitrogen 20 mg/dL (9-16); Calcium 9.2 mg/dL (8.4-10.2); Carbon Dioxide 25 mmol/L (22-29); Chloride 106 mmol/L (96-108); Creatinine Clr Calc Pharmacy 89.5; Estimated Glomerular Filt Rate > 60; Glucose Random 200 mg/dL (60-115); Potassium 4.5 mmol/L (3.3-5.1); Sodium 141 mmol/L (135-145)
[2023-12-01] MEDS: 0.9 % Sodium Chloride Flush 3 ML SYRINGE IVFLUSH (06:05)
--- NOTE | 2023-12-01 06:08 | PC.NURSE ---
Flushed pt Iv, on her right forearm, unable to change location of Iv when flushing Iv,
[2023-12-01] MEDS: Acetaminophen 325 MG TABLET 650 MG PO (06:36)
--- NOTE | 2023-12-01 06:38 | PC.NURSE ---
pt medicated per sep for headache.
[2023-12-01 06:45] VITALS: BP 151/94; PULSE 97; RESP 16; TEMP 36.9; O2SAT 92
[2023-12-01] MEDS: Albuterol/Iprat 2.5/0.5MG 3 ML AMPUL.NEB INHALE (07:32)
[2023-12-01 07:59] VITALS: BP 140/84; PULSE 68; RESP 18; TEMP 36.1; O2SAT 94
[2023-12-01] MEDS: Insulin Lispro 100 UNIT/ML 3 ML VIAL SUBCUT (08:09)
[2023-12-01 08:28] LABS: Glucose, Whole Blood 190 mg/dL (60-115)
[2023-12-01] MEDS: Escitalopram Oxalate 10 MG TABLET PO (09:00)
[2023-12-01] MEDS: hydroCHLOROthiazide 12.5 MG TABLET PO (09:00)
[2023-12-01] MEDS: methylPREDNISolone Sod Succ 40 MG/ML VIAL IVPUSH (09:00)
[2023-12-01] MEDS: lisinopriL 10 MG TABLET PO (09:00)
--- NOTE | 2023-12-01 09:12 | PM.DS ---
DS: Providers Provider Date of Service: 12/01/23 Date of admission: 11/29/23 14:54 Primary care physician: Nitza Ortiz MD DS: Diagnosis Discharge Diagnosis (1) Acute bronchitis: Status: Acute (2) Exercise hypoxemia: Status: Acute (3) Infection due to human metapneumovirus (hMPV): Status: Acute DS: Summary Hospital Course Hospital Course: Admission note HPI 53-year-old female with history of pep-fnlbnpx-zkdcgghgj type 2 diabetes, hypertension, hyperlipidemia, mood disorder who is morbidly obese with BMI greater than 52 presented to the ED earlier today for evaluation of flu-like symptoms that has been ongoing for 5 days. She denies any known sick contacts but has been reporting myalgias, headaches, nausea without vomiting, chills, nonproductive cough, and intermittent light-headedness primarily with ambulation. Denies any fevers, sore throat, congestion, abdominal pain, diarrhea, shortness of breath, chest pain. She is known history of asthma or COPD. She has no smoking history. No illicit drug use or alcohol use. On arrival, was tachycardic to 106 with ambulatory hypoxemia to 82% on room air. On room air has been maintaining oximetry 91-93%. There is no leukocytosis. Renal function and electrolyte levels are normal. Hepatic function normal. Troponin undetectable. Urinalysis unremarkable. Respiratory viral panel was positive for human metapneumovirus. CXR negative for any focal consolidation but shows bronchial wall thickening suggestive of small airways disease. In the ED, has received IV NS, ketorolac, 1 g Rocephin, azithromycin, albuterol nebulizer. She will be admitted for further management of viral syndrome/bronchitis with ambulatory hypoxemia. Hospital course The patient was admitted for treatment of hypoxia secondary to reactive airway disease from acute viral infection of human metapneumovirus. CXR suggestive of small airways disease but no focal consolidation. treated with IV methylprednisolone 40 mg b.i.d , DuoNebs q.4h while awake, albuterol p.r.n and incentive spirometry with good response over the course of hospital stay as she was weaned off Oxygen and was able to ambulate on room air with no reported dyspnea. She will be discharged on 3 more days of Prednisone and PRN Albuterol. she will need outpatient sleep study as she was advised to lose weight. Regardubg Ghu-cdqvryy-lmpzcwelu type 2 diabetes, her HbA1c increased to 6.8. She was started on Metformin on discharge with a plan to follow with PCP for monitoring. Discharge plan Use Tylenol and/or Advil 2-3 times daily for the next 3 days Prednisone for 3 more days Albuterol inhalor as needed for wheezing\dyspnea Start Metformin for diabetes control Follow with PCP for close follow up on diabetes and arrange sleep study Time Attestation Discharge Coordination Time (in mins): 36 Quality: Safe Use of Opioids Does Pt have an Active Cancer Diagnosis on the Problem List?: No Quality: Stroke Does the patient have a stroke diagnosis?: No Physical Exam Vital Signs: Vital Signs: Last Vital Signs Temp 97 F 12/01/23 07:59 Pulse 68 12/01/23 07:59 Resp 18 12/01/23 07:59 BP 140/84 H 12/01/23 07:59 Pulse Ox 94 12/01/23 07:59 O2 Del Method Room Air 12/01/23 07:59 O2 Flow Rate 95 12/01/23 01:41 BMI result Body Mass Index 52.8 Const: Other: Constitutional : Awake, interactive, not in distress Neck : Normal inspection, Supple Cardiovascular : RRR, no JVP, no lower extremity edema Respiratory : fair bilateral air entry, no crackles, no wheezes Gastrointestinal: soft, lax, Normal bowel sounds, Non tender Skin : Warm, Dry Neurological : Alert & oriented x3, No focal deficit DS: Data Data Completed and Pending Labs on day of discharge: Laboratory Results - last 24 hr 11/30/23 11/30/23 11/30/23 05:55 11:05 16:34 WBC RBC Hgb Hct MCV MCH MCHC RDW Plt Count MPV Absolute Nucleated RBC Nucleated RBC % (auto) Sodium Potassium Chloride Carbon Dioxide Anion Gap BUN Creatinine Estim Creat Clear Calc Estimated GFR POC Glucose 163 H 194 H Random Glucose Estimat Average Glucose 148 Hemoglobin A1c % 6.8 H Calcium 11/30/23 12/01/23 12/01/23 20:41 04:56 08:02 WBC 6.4 RBC 4.42 Hgb 14.4 Hct 43.2 MCV 97.7 MCH 32.6 MCHC 33.3 RDW 12.7 Plt Count 227 MPV 10.3 Absolute Nucleated RBC 0.000 Nucleated RBC % (auto) 0.0 Sodium 141 Potassium 4.5 Chloride 106 Carbon Dioxide 25 Anion Gap 15 BUN 20 H Creatinine 0.89 Estim Creat Clear Calc 89.5 Estimated GFR > 60 POC Glucose 162 H 190 H Random Glucose 200 H Estimat Average Glucose Hemoglobin A1c % Calcium 9.2 D Preliminary micro results at discharge 11/29/23 12:03 Blood Culture - Preliminary Blood - Venous No growth after 24 hours. 11/29/23 11:55 Blood Culture - Preliminary Blood - Venous No growth after 24 hours. Imaging Chest x-ray: Radiologist's impression: ITS Impressions Chest X-Ray 11/29/23 11:15 IMPRESSION: Bronchial wall thickening can be seen with a small airways process such as asthma or atypical/viral infection. Discharge Plan Discharge Anticipated Discharge Date/Time: 12/01/23 09:04 Patient Disposition: Home, Self-Care Discharge Diagnosis: Reactive airway disease Metapneumovirus infection Referrals: Nitza Ortiz MD [Primary Care Provider] - 1 Week Discharge Medications: New prednisone 20 mg tablet 40 mg PO DAILY Qty: 6 0RF metformin 500 mg tablet 500 mg PO BIDWMEAL Qty: 180 0RF albuterol sulfate 90 mcg/actuation HFA aerosol inhaler 2 puff inhalation Q6H PRN (Reason: shortness of breath or wheezing) Qty: 6.7 1RF Continued pravastatin 20 mg tablet 20 mg PO DAILY lisinopril-hydrochlorothiazide 10-12.5 mg tablet 1 tab PO DAILY escitalopram oxalate 10 mg tablet 10 mg PO DAILY ibuprofen 200 mg Tablet 200 - 400 mg PO DAILY PRN (Reason: headaches/pain) Discharge Orders: Discharge Order (Routine); Ordered 12/01/23 Ordered By: Abdirahman Watt Diet: Advance to usual diet Activity on Discharge: As tolerated Stand Alone Forms: Patient Portal Discharge page Print Language: Djiboutian Care Plan Goals: Read below Health Concerns: Read below Plan of Treatment: Read below Assessment: Use Tylenol and/or Advil 2-3 times daily for the next 3 days Prednisone for 3 more days Albuterol inhalor as needed for wheezing\dyspnea Start Metformin for diabetes control Follow with PCP for close follow up on diabetes and arrange sleep study
[2023-12-01] MEDS: Pravastatin Sodium 20 MG TABLET PO (09:27)
--- NOTE | 2023-12-01 09:42 | MHC.CM.PN ---
pt dcd homne self care
--- NOTE | 2023-12-01 09:44 | MHC.CM.PN ---
pt from [facility] where he will retuen when dcd
[2023-12-01 10:15] VITALS: BP 158/91; PULSE 66; RESP 18; TEMP 37; O2SAT 92
== END 2023-12-01 10:14 | disposition home or self-care (01) | DRG 145 ==
LOC: HO.ED 12:52 → HO.EDOVER 15:04
PROVIDERS: Physician Assistant; Admitting Provider Physician Assistant; Emergency Provider Emergency Medicine; PCP Family Medicine; Visit Provider Student in an Organized Health Care Education/Training Program
DX: J20.9 Acute bronchitis, unspecified (principal); E66.2 Morbid (severe) obesity with alveolar hypoventilation; J45.909 Unspecified asthma, uncomplicated; Z68.43 Body mass index [BMI] 50.0-59.9, adult; E78.5 Hyperlipidemia, unspecified; B97.81 Human metapneumovirus as the cause of diseases classified elsewhere; I10 Essential (primary) hypertension; F39 Unspecified mood [affective] disorder; E11.9 Type 2 diabetes mellitus without complications; Z20.822 Contact with and (suspected) exposure to COVID-19; Z79.84 Long term (current) use of oral hypoglycemic drugs; Z79.899 Other long term (current) drug therapy
CPT/HCPCS: 0241U; 36415; 71045; 80048; 80053; 81003; 82947; 83036; 83605; 83690; 84484; 85025; 85027; 85379; 85610; 87040; 87633; 87651; 93005; 94640; 99285; J0456; J0696; J1650; J1885; J2405; J2919

== ENCOUNTER → 2023-11-29 12:46 | Outpatient (BNV) | payer OTHER, SELFPAY | PROVIDERS: Admitting Provider Physician Assistant; Emergency Provider Emergency Medicine; PCP Family Medicine; Visit Provider Internal Medicine Cardiovascular Disease | DX: R06.02 Shortness of breath (principal) | CPT/HCPCS: 93010 ==

== ENCOUNTER → 2023-11-29 14:54 | Outpatient (BNV) | payer OTHER, SELFPAY | PROVIDERS: Admitting Provider Physician Assistant; Emergency Provider Emergency Medicine; PCP Family Medicine; Visit Provider Student in an Organized Health Care Education/Training Program | DX: J20.9 Acute bronchitis, unspecified (principal); J96.01 Acute respiratory failure with hypoxia; B34.8 Other viral infections of unspecified site | CPT/HCPCS: 99223; 99232; 99239 ==

== ENCOUNTER 2024-04-30 00:50 | Emergency (ER) | payer OTHER, SELFPAY ==
--- NOTE | ~2024-04-30 | XR_ITS ---
EXAMINATION: XR KNEE, RIGHT CLINICAL INFORMATION: Pain. COMPARISON: None available. TECHNIQUE: Four views of the right knee. FINDINGS: There is mild medial and patellofemoral degenerative change with mild loss of joint space and osteophyte formation. The bony structures are mildly osteopenic. There is no fracture. There is no significant joint effusion. The soft tissues are unremarkable. XR/XR knee RT 4V IMPRESSION: Mild degenerative joint disease. No acute fracture. Electronically signed by: Jayson Huerta MD 04/30/2024 02:16 AM EDT
[2024-04-30 01:04] VITALS: BP 156/92; PULSE 96; RESP 18; TEMP 36.7; O2SAT 97; BMI 51.0
--- NOTE | 2024-04-30 01:55 | ED.GENADULT ---
HPI - General Adult General Chief complaint: Extremity Injury, Lower Stated complaint: knee pain, swollen Time Seen by Provider: 04/30/24 01:29 Source: patient, RN notes reviewed and old records reviewed Mode of arrival: ambulatory Limitations: no limitations History of Present Illness ED Provider: Jeanine COTTER narrative: 3-year-old female with past medical history significant for hypertension, diabetes evaluation of right leg pain and swelling. Patient reports swelling and pain to the back of her right leg for the last 4 days. She denies any injury. 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 She reports that she was in [place] about 3 weeks ago. She flew there reports driving extensively as well. She reports several bug bites to the right lower leg. Denies any redness or fevers, chills. She denies any history of DVT/PE. She reports that 2 months ago she was started on Ozempic and not like the side effects so she discontinued it and was switched to metformin Related Data Home Medications ?Medication ?Instructions ?Recorded ?Confirmed escitalopram oxalate 10 mg tablet 10 mg PO DAILY 11/29/23 11/29/23 ibuprofen 200 mg tablet 200 - 400 mg PO DAILY PRN 11/29/23 11/29/23 headaches/pain lisinopril 10 1 tab PO DAILY 11/29/23 11/29/23 mg-hydrochlorothiazide 12.5 mg tablet pravastatin 20 mg tablet 20 mg PO DAILY 11/29/23 11/29/23 Previous Rx's ?Medication ?Instructions ?Recorded albuterol sulfate 90 mcg/actuation 2 puff inhalation Q6H PRN 12/01/23 aerosol inhaler shortness of breath or wheezing #6.7 grams metformin 500 mg tablet 500 mg PO BIDWMEAL #180 tabs 12/01/23 prednisone 20 mg tablet 40 mg (2 x 20 mg) PO DAILY #6 tabs 12/01/23 Allergies Allergy/AdvReac Type Severity Reaction Status Date / Time No Known Allergies Allergy Verified 04/30/24 01:05 Review of Systems Constitutional: Constitutional: Denies body ache(s), Denies chills, Denies fever(s) and Denies frequent falls Eyes: Eyes: Denies blurry vision ENT: Denies vertigo and Denies dizziness Cardiovascular: Cardiovascular: Denies chest pain, Reports leg edema and Denies dyspnea Respiratory: Respiratory: Denies cough and Denies dyspnea Gastrointestinal: Gastrointestinal: Denies abdominal pain, Denies nausea and Denies vomiting Musculoskeletal: Musculoskeletal: Denies back pain, Reports arthralgias and Reports radiating pain into limb Integumentary/Breasts: Skin/Breast: Denies rash Neurologic: Denies vertigo, Denies dizziness and Denies frequent falls [facility] Past Medical History Medical History (Updated 04/30/24 @ 02:00 by José Miguel Solorzano) Diabetes HLD (hyperlipidemia) HTN (hypertension) Social History Social History Alcohol intake: never Advance Directives: Yes Advance Directives on File: Yes Advance Directives Date on File: 11/29/23 Do you have a plan to hurt others: No Plan Physical Exam ED Vital Signs: Vital Signs - 24 hr 04/30/24 01:04 Temperature 98.1 F Pulse Rate 96 Respiratory Rate 18 Blood Pressure 156/92 H Pulse Oximetry 97 Oxygen Delivery Method Room Air BMI result Body Mass Index 51.0 Const General: healthy appearing, comfortable, no acute distress, alert and awake Nutritional Appearance: well nourished Orientation/consciousness: patient oriented x3 HENMT Head: Yes normocephalic and Yes atraumatic Eyes Eyelids: Yes eyelids normal Conjunctivae: conjunctivae normal Sclerae: sclerae normal Corneas: corneas normal Pupils: Equal, round and reactive pupils present EOM: EOMs intact bilaterally Neck Neck: Yes full ROM Resp Effort & Inspection: normal respiratory effort, able to speak in complete sentences and not labored GI Inspection: No distended Palpation (GI): Soft to palpation, not firm, nontender, no guarding and not rigid Skin General skin exam: elasticity normal Neuro General: patient oriented x3 Cranial nerves: Yes Equal, round and reactive pupils present and Yes Bilaterally intact EOM present Cognition (Neuro): normal cognition Extrem Other: Patient has nonpitting edema to the right posterior leg. Her edema is mostly to the right posterior thigh. She has some tenderness in this area. No overlying skin changes, no palpable cords. She has full range of motion with flexion and extension of the right knee Medical Decision Making Medical Decision Making MDM Narrative: 53-year-old female presents for evaluation of right leg pain and swelling. This is atraumatic. An x-ray of the right knee was ordered, I have a low suspicion for fracture. Have a recent flight as well as a several hour car ride. Plan for labs including a D-dimer. The patient will likely require ultrasound of the right lower extremity. If her D-dimer is elevated will ox for DVT. If the D-dimer is negative the patient will still be referred for outpatient ultrasound but we will not administer Lovenox. Differential Diagnosis Differential Diagnoses: The differential diagnosis associated with the presentation includes Right leg pain and swelling Lentz's cyst DVT Leg pain Lab Data 04/30/24 01:54 04/30/24 01:54 Labs: Lab Results 04/30/24 Range/Units 01:54 WBC 8.6 (4.8-10.8) X10*3/uL RBC 4.44 (4.20-5.50) X10*6/uL Hgb 14.5 (12.0-16.0) g/dl Hct 42.3 (37.0-47.0) % MCV 95.3 (80.0-98.0) fL MCH 32.7 (27.0-33.0) pg MCHC 34.3 (31.0-35.0) g/dl RDW 12.6 (11.0-16.0) % Plt Count 304 D (160-400) X10*3/uL MPV 10.3 (9.4-12.3) fL Immature Gran % (Auto) 0.2 (0.0-0.4) % Neut % (Auto) 51.5 (45-73) % Lymph % (Auto) 36.8 (20-40) % Cross % (Auto) 9.0 (2-11) % Eos % (Auto) 2.2 (0-4) % Baso % (Auto) 0.3 (0-2) % Lymph # (Auto) 3.2 (1.2-4.9) X10*3/uL Cross # (Auto) 0.8 (0.1-1.2) X10*3/uL Eos # (Auto) 0.2 (0.0-0.4) X10*3/uL Baso # (Auto) 0.0 (0.0-0.2) X10*3/uL Abs Immat Gran (auto) 0.02 (0.00-0.03) X10*3/uL Absolute Neuts (auto) 4.4 (2.0-8.3) x10*3/uL Absolute Nucleated RBC 0.000 (0.0-0.012) X10*3/uL Nucleated RBC % (auto) 0.0 (0.0-0.2) /100WBC PT 10.8 L (10.9-12.4) SEC INR 0.9 (0.9-1.1) D-Dimer High Sensitivty 154 NG/ML Sodium 139 (135-145) mmol/L Potassium 3.7 (3.3-5.1) mmol/L Chloride 105 (96-108) mmol/L Carbon Dioxide 24 (22-29) mmol/L Anion Gap 14 (12-20) BUN 20 H (9-16) mg/dL Creatinine 0.97 (0.5-1.4) mg/dL Estim Creat Clear Calc 80.3 Estimated GFR 60 Random Glucose 136 H (60-115) mg/dL Calcium 9.6 (8.4-10.2) mg/dL Discharge Plan Discharge Clinical Impression: Pain and swelling of right lower leg Patient Disposition: Home, Self-Care Instructions: Leg Pain (ED) Additional Instructions: Your blood work was reassuring. You are not likely to have a blood clot. You may follow-up with the outpatient ultrasound to evaluate for Lentz's cyst I also recommend that you follow-up with your primary doctor. Elevate the leg above your heart while resting Prescriptions: No Action pravastatin 20 mg tablet 20 mg PO DAILY lisinopril-hydrochlorothiazide 10-12.5 mg tablet 1 tab PO DAILY escitalopram oxalate 10 mg tablet 10 mg PO DAILY ibuprofen 200 mg Tablet 200 - 400 mg PO DAILY PRN (Reason: headaches/pain) prednisone 20 mg tablet 40 mg PO DAILY Qty: 6 0RF metformin 500 mg tablet 500 mg PO BIDWMEAL Qty: 180 0RF albuterol sulfate 90 mcg/actuation HFA aerosol inhaler 2 puff inhalation Q6H PRN (Reason: shortness of breath or wheezing) Qty: 6.7 1RF Print Language: Turkish
[2024-04-30 01:57] LABS: MANUAL DIFF FLAG NO
[2024-04-30 02:00] LABS: Basophils Percent Auto 0.3 % (0-2); Eosinophils Absolute Auto 0.2 X10*3/uL (0.0-0.4); Eosinophils Percent Auto 2.2 % (0-4); Hematocrit 42.3 % (37.0-47.0); Hemoglobin 14.5 g/dl (12.0-16.0); Imm Gran Abs Auto 0.02 X10*3/uL (0.00-0.03); Imm Gran Pct Auto 0.2 % (0.0-0.4); Lymphocytes Absolute Auto 3.2 X10*3/uL (1.2-4.9); Lymphocytes Percent Auto 36.8 % (20-40); Mean Corpuscular HGB Conc 34.3 g/dl (31.0-35.0); Mean Corpuscular Hemoglobin 32.7 pg (27.0-33.0); Mean Corpuscular Volume 95.3 fL (80.0-98.0); Mean Platelet Volume 10.3 fL (9.4-12.3); Monocytes Absolute Auto 0.8 X10*3/uL (0.1-1.2); Neutrophils Absolute Auto 4.4 x10*3/uL (2.0-8.3); Neutrophils Percent Auto 51.5 % (45-73); Platelet Count 304 X10*3/uL (160-400); Red Blood Count 4.44 X10*6/uL (4.20-5.50); Red Cell Distribution Width 12.6 % (11.0-16.0); White Blood Count 8.6 X10*3/uL (4.8-10.8)
[2024-04-30 02:06] LABS: INTERNATIONAL NORM RATIO 0.9 (0.9-1.1); Prothrombin Time 10.8 SEC (10.9-12.4)
[2024-04-30 02:07] LABS: D Dimer High Sensitivity 154 NG/ML
[2024-04-30 02:12] LABS: Anion Gap 14 (12-20); Blood Urea Nitrogen 20 mg/dL (9-16); Calcium 9.6 mg/dL (8.4-10.2); Carbon Dioxide 24 mmol/L (22-29); Chloride 105 mmol/L (96-108); Creatinine Clr Calc Pharmacy 80.3; Estimated Glomerular Filt Rate 60; Glucose Random 136 mg/dL (60-115); Potassium 3.7 mmol/L (3.3-5.1); Sodium 139 mmol/L (135-145)
[2024-04-30 02:32] VITALS: BP 156/92; PULSE 96; RESP 18; TEMP 36.7; O2SAT 97
== END 2024-04-30 02:33 | disposition home or self-care (01) ==
PROVIDERS: Physician Assistant; Emergency Provider Emergency Medicine; PCP Family Medicine
DX: M79.661 Pain in right lower leg (principal); I10 Essential (primary) hypertension; Z79.899 Other long term (current) drug therapy
CPT/HCPCS: 36415; 73564; 80048; 85025; 85379; 85610; 99282; 99283

== ENCOUNTER 2024-05-02 15:11 | Outpatient (REF) | payer OTHER, SELFPAY ==
--- NOTE | ~2024-05-02 | US_ITS ---
EXAMINATION: US TRIPLEX LOWER EXTREMITY, RIGHT CLINICAL INFORMATION: Right lower extremity swelling COMPARISON: None available. TECHNIQUE: Color-flow triplex imaging with spectral analysis and compression Doppler were performed on the right lower extremity. FINDINGS: Respiratory variation, normal compression and augmented flow are noted throughout the right lower extremity. The visualized common femoral vein, superficial femoral vein, profunda femoral vein, popliteal vein and midcalf peroneal and posterior tibial venous segments show no evidence of deep venous thrombosis. Lentz's cyst measures 5 x 1.9 x 2.5 cm. US/US venous duplex LE RT IMPRESSION: No evidence of deep venous thrombosis involving the right lower extremity. Electronically signed by: Liam Pendleton MD 05/02/2024 04:20 PM EDT
== END 2024-05-02 15:12 | disposition home or self-care (01) ==
LOC: HO.US 15:11
PROVIDERS: PCP Family Medicine; Visit Provider Family Medicine
DX: R60.0 Localized edema (principal); M79.604 Pain in right leg
CPT/HCPCS: 93971

== ENCOUNTER 2024-12-14 14:13 | Outpatient (AMB) | payer OTHER, SELFPAY ==
--- NOTE | 2024-12-14 14:17 | A.OFFVIS_ITS ---
Vital Signs 12/14/24 14:18 Height 5 ft 1 in Weight 270 lb BMI 51.0 Intake Visit Reasons: [employer] - RT knee pain Intake Note: Chente is a 54 year old female who presents as a new patient for an evaluation of right knee pain. Patient was seen at [facility] on 04/30/24 due to right knee pain and swelling. She was recommended to follow up with her PCP. US was done, ruled out DVT. She was told having arthritis as well as a gold cyst. Patient reports that she was previously seen at [facility], injections were given. She received cortisone and gel injections however these did not provide her with any relief. She was told that she needed a knee replacement. Denies injury. She has constant discomfort below her kneecap and the medial side of knee. Her current pain level is a 6 out of 10. She was taking ibuprofen daily however suggested to not take as much and is now she tried to take every other day. She uses a cane and knee bracing. Difficulty with stair use, stating has to take one step out of a time. She is requesting an MRI. Allergies No Known Allergies Allergy (Verified 12/14/24 14:28) HPI HPI [employer] - RT knee pain: Details: 54 yo female presents to the office to the office today for right knee pain. She was previously seen by [facility] and had injections, approx 7 months ago with gel and steroid. She continues to have limitations with daily activities however it is not severely debilitating where she can not perform these functions. She states she is working on weight loss and has reached a point where she is doing well on her diet but she wants to do more with activity and is unsure on which activities are safe for her with her knee condition. [facility] Medical History (Updated 12/14/24 @ 15:05 by Florentino Alicea PA-C) Diabetes HLD (hyperlipidemia) HTN (hypertension) Social History (Updated 12/14/24 @ 14:29 by ZAHIRA Yanez) Alcohol intake: never Patient Tobacco Use Status: Never used Tobacco Advance Directives Date on File: 11/29/23 Current occupational status: employed Current occupation: [employer] Review of Systems Const All systems reviewed & are unremarkable except as noted in HPI and below Physical Exam Vital Signs: BMI result Body Mass Index 51.0 Const General: cooperative and no acute distress Orientation/consciousness: patient oriented x3 Resp Effort & Inspection: normal respiratory effort and able to speak in complete sentences Cardio Peripheral pulses: Peripheral pulses 2+ throughout Neuro General: patient oriented x3 Extrem Other: Right knee is normal to inspection she has no erythema or swelling. Full range of motion with crepitus. Mild lateral retropatellar tenderness present. Calf supple nontender neurovascularly intact. Results Reviewed Results Reviewed: X-rays of the right knee obtained in the office today and reviewed by me show moderate arthritis. Assessment & Plan Assessment & Plan (1) Osteoarthritis of right knee: Code(s): M17.11 - Unilateral primary osteoarthritis, right knee Category: Medical Plan We had a lengthy discussion about the extent of her arthritis and options available which include conservative management. She would benefit from physical therapy exercises to teacher some strength and conditioning exercises to help with her patellar tracking. I also explained the amount of load that is dispersed throughout the knee is 3 times that of her body weight when she is going downstairs. I explained the importance of working on the mechanics of her lower extremities and posterior training to help disperse this load. We also discussed options including anti-inflammatories such as Celebrex to help with flare-ups. I explained the use of Celebrex 2 times a day for 2 weeks to help with her flare-ups and then as needed. We also discussed steroid injections which were going to hold off on at this time as I feel her symptoms are not at the point where she needs 1. If symptoms persist or worsen or she has any questions or concerns she can certainly contact me and we can discuss further otherwise she will follow up as needed. Orders: Orders XR knee RT 2V Today M25.569 - Pain in unspecified knee PT Evaluation and Treatment Today M17.11 - Unilateral primary osteoarthritis, right knee Medications: New celecoxib (Celebrex) 200 mg PO BID 60 caps 3RF 30 days Discontinued albuterol sulfate 90 mcg/actuation Discontinued Reason: Patient no longer taking 2 puffs inhalation Q6H PRN 6.7 grams 1RF shortness of breath or wheezing prednisone Discontinued Reason: Patient no longer taking 40 mg (2 x 20 mg) PO DAILY 6 tabs 0RF Coding Level of Care Code New Pt Level 3 (63867) Complex EM visit Add On G2534 Diagnoses Osteoarthritis of right knee M17
[2024-12-14 14:18] VITALS: BMI 51.0
--- OUTSIDE RECORDS SUMMARY | 2024-12-14 16:53 | XMS_ITS | Clinical Summary ---
Author Organization [facility] Address [address] [place] [address] Care Team Providers Care Dry House Attendant Name Role Phone Nitza Ortiz MD Primary Care Provider Active Problems Problem Noted Date Diagnosed Date Left carpal tunnel syndrome 12/31/2021 Right carpal tunnel syndrome 12/31/2021 Social History Tobacco Use Types Packs/Day Years Used Date Smoking Tobacco: Never Assessed Sex and Gender Information Value Date Recorded Sex Assigned at Female 12/26/2021 8:54 AM EDT Gender Identity Female 12/26/2021 8:54 AM EDT Sexual Orientation Not on file Job Start Date Occupation Industry Not on file Not on file Not on file Plan of Treatment Health Maintenance Due Date Last Done Comments Hepatitis B Vaccines (1 of 3 - 3-dose series) 1968 Hepatitis C Screening 1968 COVID-19 Vaccine (#1) 1968 Depression Screening 1980 Preventative Health Evaluation 1986 DTap / Tdap / Td (1 - Tdap) 1987 Cervical Cancer Screening (P ap Smear) 1989 Colon Cancer Screening (Colonoscopy) 2013 Breast Cancer Screening (Mammogram) 2018 Shingrix-Zoster Vaccine (1 of 2) 2018 Influenza Vaccine (Season Ended) 2025 Pneumococcal Vaccine Aged Out No long er eligible based on patient's age to complete this topic RSV Ped < 20 months Aged Out No longe r eligible based on patient's age to complete this topic Care Teams Dry House Attendant Relationship Specialty Start Date End Date Nitza Ortiz MD [address] [place] [id number] PCP - General Family Medicine 12/26/21
== END 2024-12-14 15:15 | disposition home or self-care (01) ==
LOC: HO.HOS 14:14
PROVIDERS: PCP Family Medicine; Visit Provider Physician Assistant
DX: M17.11 Unilateral primary osteoarthritis, right knee (principal)
CPT/HCPCS: 99204

== ENCOUNTER 2024-12-14 14:13 | Outpatient (REF) | payer OTHER, SELFPAY ==
--- NOTE | ~2024-12-14 | XR_ITS ---
CLINICAL HISTORY: M25.569 - Pain in unspecified knee --- Additional Notes or Special Instructions: REBECCA encinas sunrise Two views of the right knee. Single view of the left knee. COMPARISON: None FINDINGS: AP view of the bilateral knees and patellofemoral view of the right knee was obtained. AP and sunrise views of the right knee: Medial joint space narrowing. Small osteophytes present along the medial and lateral compartments. Visualized portions of the distal femur, patella, and proximal tibia and fibula appear intact. AP view of the left knee: Mild medial joint space narrowing. Osteophytes present along the medial and lateral compartments. Visualized portions of the distal femur, and proximal tibia and fibula appear intact. IMPRESSION: 1. Limited imaging of the right knee was obtained. Within limits of study, no evidence of acute injury to the right knee. 2. [id number] degenerative changes of the right knee most pronounced within medial compartment. This document has been electronically signed by: Nilson Avila MD on 12/15/2024 12:48:34
== END 2024-12-14 14:14 | disposition home or self-care (01) ==
LOC: HO.HOSX 14:13
PROVIDERS: PCP Family Medicine; Visit Provider Physician Assistant
DX: M25.561 Pain in right knee (principal)
CPT/HCPCS: 73560

== ENCOUNTER → 2024-12-14 14:38 | Outpatient (BNV) | payer OTHER, SELFPAY | PROVIDERS: PCP Family Medicine; Visit Provider Radiology Diagnostic Radiology | DX: M17.11 Unilateral primary osteoarthritis, right knee (principal) | CPT/HCPCS: 73560 ==

== ENCOUNTER 2025-04-04 12:14 | Emergency (ER) | payer OTHER, SELFPAY ==
--- NOTE | ~2025-04-04 | XR_ITS ---
EXAMINATION: XR LUMBOSACRAL SPINE CLINICAL INFORMATION: pain after bending forward COMPARISON: None available. TECHNIQUE: Three views of the lumbosacral spine. FINDINGS: There is a mild left convex scoliosis, apex at L2. There is a normal lordosis. There is a trace degenerative 2 mm retrolisthesis of L2 on L3. Alignment is otherwise anatomic. No fracture, compression deformity, or suspicious bone lesion. There are sclerotic type endplate changes at L2-3. Mild to moderate disc degeneration is present, most significant at L2-3. Facets are normally aligned. Facet degeneration is present spanning L4-S1. Soft tissues demonstrate vascular calcifications. In addition there are calcifications overlying the right renal shadow suspicious for renal calculi. A 10 mm calcification abutting the right transverse process of L3 could potentially represent a ureteral calculus. Would correlate with clinical presentation. XR/XR lumbar spine 2-3V IMPRESSION: 1. No acute finding of the lumbar spine. 2. Mild to moderate spondylosis most significant at L2-3. Mild levoconvex scoliosis. 3. Suspect right renal calculi. See above. Electronically signed by: Joao Yeboah MD 04/04/2025 12:47 PM EDT
[2025-04-04 12:19] VITALS: BP 181/104; PULSE 90; RESP 16; TEMP 36.3; O2SAT 94; BMI 49.9
--- NOTE | 2025-04-04 12:20 | ED_ITS ---
HPI - General Adult General Chief complaint: Back Pain/Injury Stated complaint: back inj? t-1 Time Seen by Provider: 04/04/25 13:29 Source: patient Mode of arrival: ambulatory Limitations: no limitations History of Present Illness ED Provider: Rula Teague PA-C HPI narrative: Patient is a 54 year old assigned female at with a history of kidney stones, DM, HTN, and HLD presenting to the emergency department today with low back pain. Patient states that 2 days ago she moved heavy furniture and was fine but then yesterday she bent over and her low back has hurt ever since. Patient denies any other complaints at this time. Related Data Home Medications ?Medication ?Instructions ?Recorded ?Confirmed escitalopram oxalate 10 mg tablet 10 mg PO DAILY 11/2811/29/23 ibuprofen 200 mg tablet 200 - 400 mg PO DAILY PRN 11/29/23 headaches/pain lisinopril 10 1 tab PO DAILY 11/29/2311/10 mg-hydrochlorothiazide 12.5 mg tablet pravastatin 20 mg tablet 20 mg PO DAILY 11/29/2311/10 Previous Rx's ?Medication ?Instructions ?Recorded metformin 500 mg tablet 500 mg PO BIDWMEAL #180 tabs 12/01/23 celecoxib 200 mg capsule (Celebrex) 200 mg PO BID 30 d ays #60 caps 12/14/24 cyclobenzaprine 5 mg tablet 5 mg PO TID PRN back pain 7 days 04/04/25 #21 tabs Allergies Allergy/AdvReac Type Severity Reaction Status Date / Time No Known Allergies Allergy Verified 04/04/25 12:22 Review of Systems Constitutional: Constitutional: Reports as per HPI Eyes: Eyes: Reports as per HPI ENT: Reports as per HPI Cardiovascular: Cardiovascular: Reports as per HPI Respiratory: Respiratory: Reports as per HPI Gastrointestinal: Gastrointestinal: Reports as per HPI Genitourinary: Genitourinary: Reports as per HPI Musculoskeletal: Musculoskeletal: Reports as per HPI Integumentary/Breasts: Skin/Breast: Reports as per HPI Neurologic: Reports as per HPI Psychiatric: Psychiatric: Reports as per HPI Endocrine: Endocrine: Reports as per HPI Hematologic/Lymphatic: Hematologic/Lymphatic: Reports as per HPI Allergic/Immunologic: Allergic/Immunologic: Reports as per HPI [facility] Past Medical History Attestation statement: The following information was validated with the patient. Source: old records reviewed and nursing notes reviewed Medical History Diabetes HLD (hyperlipidemia) HTN (hypertension) Social History Social History Alcohol intake: never Patient Tobacco Use Status: Never used Tobacco Smoked in Last 30 Days: No Use of substances other than those prescribed or required for medical reasons: No Advance Directives: Yes Advance Directives on File: Yes Advance Directives Date on File: 11/29/23 Do you have a plan to hurt others: No Plan Patient : No Current occupational status: employed Current occupation: [employer] Physical Exam ED Vital Signs: Vital Signs - 24 hr 04/04/25 12:19 04/04/25 12:43 04/04/25 12:47 Temperature 97.3 F 97.3 F 98.3 F Pulse Rate 90 90 86 Respiratory Rate 16 16 18 Blood Pressure 181/104 H 181/104 H 160/103 H Pulse Oximetry 94 94 94 Oxygen Delivery Method Room Air Room Air Room Air 04/04/25 14:10 Temperature 0 F L Pulse Rate 83 Respiratory Rate 18 Blood Pressure 150/103 H Pulse Oximetry 96 Oxygen Delivery Method Room Air BMI result Body Mass Index 49.9 Const General: cooperative, no acute distress, alert and awake Nutritional Appearance: well nourished Orientation/consciousness: patient oriented x3 HENMT Head: Yes normal to inspection and Yes atraumatic Ears: hearing grossly normal bilaterally and external ears normal General nose exam: Normal external nose present, no nasal discharge noted and no epistaxis Face and sinus: Yes normal facial exam, No abrasion and No laceration Mouth: Normal oral and palatal mucosa present, no drooling and no muffled voice Eyes General: appearance normal, both eyes and all related structures Periorbital: periorbital findings normal Eyelids: Yes eyelids normal Conjunctivae: conjunctivae normal Pupils: Equal, round and reactive pupils present EOM: EOMs intact bilaterally Neck Neck: Yes normal visual inspection and Yes full ROM Resp Effort & Inspection: normal respiratory effort and able to speak in complete sentences Neuro General: patient oriented x3, moves all extremities and CN's II-XI intact bilaterally Cranial nerves: Yes Equal, round and reactive pupils present Cognition (Neuro): normal cognition Extrem General: Yes normal to inspection, Yes full ROM and Yes capillary refill normal Psych Appearance: grossly normal Mental Status: mental status grossly normal Affect: normal affect Attitude: cooperative Thought process: Normal thought process present Thought content: Normal thought content present Insight: Good insight present (Psych) Course Course Course Narrative: This is a rapid medical exam performed by Ezra Medrnao NP: Additional HPI, ROS, PE not included below will be deferred to primary provider. Patient is a 54-year-old female presenting with complaint of severe lower back pain since yesterday. Day before she moved a mattress but did not have pain. Yesterday bent down while sweeping and the pain started. Plan: x-ray Medications Administered Discontinued Medications Generic Name Dose Route Start Last Admin Trade Name Elizabeth PRN Reason Stop Dose Admin Cyclobenzaprine HCl 5 mg 04/04/25 13:42 04/04/25 13:58 Cyclobenzaprine Hcl 5 Mg Tablet PO 04/04/25 13:43 5 mg ONCE ONE Administration Methylprednisolone Sodium Succinate 60 mg 04/04/25 13:42 04/04/25 13:59 Methylprednisolone Sod Succ 125 Mg/2 Ml Vial IM 04/04/25 13:43 60 mg ONCE ONE Administration Medical Decision Making Medical Decision Making MDM Narrative: Patient is a 54 year old assigned female at with a history of kidney stones, DM, HTN, and HLD presenting to the emergency department today with low back pain. Patient's physical exam showed. Patient's lumbar spine x-ray showed mild to moderate spondylosis most significant at L2-3 and a possible right renal stone. Patient's clinical presentation is most consistent with a lumbar strain. I explained my physical exam findings as well as all test results to the patient. I answered all questions asked by the patient. I stressed the importance of the patient taking her medication as directed (either prescribed or as the over the counter packaging recommends). I stressed the importance of the patient following up with her primary care provider. I stressed the importance of the patient returning to the emergency department immediately if her symptoms were to worsen or if she were to develop any dizziness, shortness of breath, difficulty breathing, chest pain, blurry vision, loss of vision, nausea, vomiting, abdominal pain, fever, chills, back pain, or any other complaints. Patient verbalized agreement and understanding with this treatment plan and discharge. Differential Diagnosis Differential Diagnoses: The differential diagnosis associated with the presentation includes Low back pain Lumbar strain Lumbar sprain Admission/Observation Consideration of admission/observation: Escalation of care including admission/observation considered Patient would have been admitted to the hospital had her work up had any findings where hospital admission was appropriate and her clinical presentation warranted hospital admission. Independent Interpretation I performed an independent interpretation of an: Plain X-Ray Interpretation: My interpretation is in agreement with the radiologist's impression of this imaging study. Reason for Exam: pain after bending forward EXAMINATION: XR LUMBOSACRAL SPINE CLINICAL INFORMATION: pain after bending forward COMPARISON: None available. TECHNIQUE: Three views of the lumbosacral spine. FINDINGS: There is a mild left convex scoliosis, apex at L2. There is a normal lordosis. There is a trace degenerative 2 mm retrolisthesis of L2 on L3. Alignment is otherwise anatomic. No fracture, compression deformity, or suspicious bone lesion. There are sclerotic type endplate changes at L2-3. Mild to moderate disc degeneration is present, most significant at L2-3. Facets are normally aligned. Facet degeneration is present spanning L4-S1. Soft tissues demonstrate vascular calcifications. In addition there are calcifications overlying the right renal shadow suspicious for renal calculi. A 10 mm calcification abutting the right transverse process of L3 could potentially represent a ureteral calculus. Would correlate with clinical presentation. XR/XR lumbar spine 2-3V IMPRESSION: 1. No acute finding of the lumbar spine. 2. Mild to moderate spondylosis most significant at L2-3. Mild levoconvex scoliosis. 3. Suspect right renal calculi. See above. Electronically signed by: Joao Yeboah MD 04/04/2025 12:47 PM EDT RP Dictated By: Joao Yeboah MD Signed By: Electronically signed by Joao Yeboah MD 04/04/25 1247 Radiology Impression Discussion of test interpretation with radiology: I have reviewed the radiologist's reading. Chronic Conditions Patient?s care impacted by: Diabetes Discharge Plan Discharge Clinical Impression: Strain of lumbar region Patient Disposition: Home, Self-Care Instructions: Low Back Strain (ED), Lower Back Exercises (ED) Additional Instructions: Your x-ray showed no eliseo abnormality. I am suspicious you have a lumbar strain. IF you are prescribed home medications and/or you are taking over the counter medications at home - it is very important you continue to do so as prescribed / directed unless told otherwise. Follow up with your primary care provider. Return to the emergency department immediately if your symptoms worsen or if you develop any numbness, tingling, dizziness, shortness of breath, difficulty breathing, chest pain, blurry vision, loss of vision, nausea, vomiting, abdominal pain, fever, chills, back pain, or any other complaints. Please see the information below about our Patient Portal. If you are not yet enrolled in the [facility] Patient Portal, you will receive an enrollment email invitation following your visit to any [facility] setting. You may also self-enroll in the Patient Portal by visiting our website: [email or web address] The following information is required to access the Patient Portal: - Your [facility] Medical Record Number - Your personal home email address (must match what is in your electronic medical record, Registration staff can assist with this) - Name - Date of Capabilities of the Patient Portal: - Message some providers - View upcoming appointments - Access your health summary, medical history, and visit history - View current conditions and allergies - View procedure and lab results - View your medications, including guidelines, side effects, and precautions - Complete pre-appointment questionnaires requested by your provider - Ready summary reports of your office visits and procedures To access the Patient Portal Mobile [employer], follow these directions: - Search [employer] in the [employer] Store or [employer] Store - Download the Marshall - Search for [facility] - Enter your login/password Prescriptions: New cyclobenzaprine 5 mg tablet 5 mg PO TID PRN (Reason: back pain) 7 Days Qty: 21 0RF No Action pravastatin 20 mg tablet 20 mg PO DAILY lisinopril-hydrochlorothiazide 10-12.5 mg tablet 1 tab PO DAILY escitalopram oxalate 10 mg tablet 10 mg PO DAILY ibuprofen 200 mg Tablet 200 - 400 mg PO DAILY PRN (Reason: headaches/pain) metformin 500 mg tablet 500 mg PO BIDWMEAL Qty: 180 0RF celecoxib [Celebrex] 200 mg capsule 200 mg PO BID 30 Days Qty: 60 3RF Referrals: Nitza Ortiz MD [Primary Care Provider, Family Practice] Stand Alone Forms: Work/School Release Interventions: ED Discharge Assessment Last Done: 04/04/25 14:10 Discharge Date/Time: 04/04/25 14:10 Print Language: Greek
[2025-04-04 12:43] VITALS: BP 181/104; PULSE 90; RESP 16; TEMP 36.3; O2SAT 94
[2025-04-04 12:47] VITALS: BP 160/103; PULSE 86; RESP 18; TEMP 36.8; O2SAT 94
--- NOTE | 2025-04-04 12:48 | PC.NURSE ---
Addendum entered by Liam Mora RN 04/04/25 12:49: accidentally closed out note. Continued: pt sts moved a bed 2 days ago, back did not hurt then. A+OX4, calm, cooperative. Pt does ambulate independently but sts pain becomes a lot worse when ambulating. RR even and unlabored, denies CP or SOB. Original Note: 54 F presents to ED with lower back pain since yesterday when bending forward while sweeping, sts movedv
[2025-04-04 14:10] VITALS: BP 150/103; PULSE 83; RESP 18; TEMP -17.7; TEMP 0; O2SAT 96
--- OUTSIDE RECORDS SUMMARY | 2025-04-04 15:09 | XMS_ITS | Clinical Summary ---
Author Organization [facility] Address [address] [place] [address] Care Team Providers Care Finisher Cold Rolling Name Role Phone Nitza Ortiz MD Primary [...] Vaccine (1 of 2) 2018 Influenza Vaccine (#1) 2025 Pneumococcal Vaccine Aged Out No long er eligible based on patient's age to complete this topic RSV Ped < 20 months Aged Out No longe r eligible based on patient's age to complete this topic Care Teams Finisher Cold Rolling Relationship Specialty Start Date End Date Nitza Ortiz MD [address] [place] [id number] PCP - General Family Medicine 12/26/21
== END 2025-04-04 14:10 | disposition home or self-care (01) ==
PROVIDERS: Emergency Provider Emergency Medicine; PCP Family Medicine
DX: S39.012A Strain of muscle, fascia and tendon of lower back, initial encounter (principal); X50.0XXA Overexertion from strenuous movement or load, initial encounter; Y93.9 Activity, unspecified; Y92.9 Unspecified place or not applicable; Y99.8 Other external cause status; Z79.899 Other long term (current) drug therapy
CPT/HCPCS: 72100; 96372; 99284; J2919

== ENCOUNTER → 2025-04-04 12:21 | Outpatient (BNV) | payer OTHER, SELFPAY | PROVIDERS: PCP Family Medicine; Visit Provider Radiology Diagnostic Radiology | DX: M54.50 Low back pain, unspecified (principal) | CPT/HCPCS: 72100 ==